=== PATIENT | female | born 1975 | race Caucasian/White ===

== ENCOUNTER 2017-11-20 09:06 | Observation (INO) | payer OTHER ==
[~2017-11-20 09:06] MED LIST: CEFAZOLIN 1 GM INJ; CEFAZOLIN 2 GM/50 ML (PMX) 50 ML IVPB; FENTAnyl 50 MCG/ML VIAL; GLYCOPYRROLATE 0.4 MG INJ; MIDAZOLAM 1 MG/ML 2 ML INJ; NEOSTIGMINE 3 MG/3 ML SYRINGE; ONDANSETRON 4 MG INJ; PROPOFOL 20 ML; ROCURONIUM 50 MG INJ; SOD CHLORIDE 0.9% 1,000 ML IV; SUCCINYLCHOLINE CHLORIDE 100 MG/5 ML SYG IV
[2017-11-20] MEDS ORDERED: DIPHENHYDRAMINE 50 MG INJ IV (16:00)
[2017-11-20] MEDS ORDERED: HYDROmorphONE (0.2 MG/ML) 10ML SYG IV ×3 (16:00)
[2017-11-20] MEDS ORDERED: MEPERIDINE 25 MG INJ IV (16:00)
[2017-11-20] MEDS ORDERED: LABETALOL HCL 20MG INJ IV (16:00)
[2017-11-20] MEDS ORDERED: OXYCODONE/ACETAMINOPHEN (5/325) TAB PO (16:00)
[2017-11-20] MEDS ORDERED: FENTAnyl 50 MCG/ML VIAL IV ×3 (16:00)
[2017-11-20] MEDS ORDERED: PROCHLORPERAZINE 10 MG INJ IV (16:00)
[2017-11-20] MEDS ORDERED: hydrALAzine 20 MG INJ IV (16:00)
[2017-11-20] MEDS: ISOSULFAN BLUE 1% 5 ML INJ SC (16:05)
[2017-11-20] MEDS ORDERED: MIDAZOLAM 1 MG/ML 2 ML INJ (16:21)
[2017-11-20] MEDS ORDERED: FENTAnyl 50 MCG/ML VIAL (16:21)
[2017-11-20] MEDS ORDERED: DEXAMETHASONE 4 MG/ML 1 ML INJ (16:21)
[2017-11-20] MEDS ORDERED: LIDOCAINE 2% (SDV) 5 ML INJ (16:21)
[2017-11-20] MEDS ORDERED: PROPOFOL 20 ML (16:21)
[2017-11-20] MEDS ORDERED: ONDANSETRON 4 MG INJ (16:21)
[2017-11-20] MEDS ORDERED: CEFAZOLIN 1 GM INJ (16:36)
[2017-11-20] MEDS ORDERED: HYDROmorphONE 2 MG/ML SYG (16:59)
[2017-11-20] MEDS ORDERED: ISOSULFAN BLUE 1% 5 ML INJ SC (17:19)
[2017-11-20] MEDS ORDERED: ONDANSETRON 4 MG INJ IV (17:30)
[2017-11-20] MEDS ORDERED: morphine 2 MG INJ IV (17:30)
[2017-11-20] MEDS ORDERED: ACETAMINOPHEN 1000MG/100ML IV 100 ML (18:05)
[2017-11-20] MEDS: ONDANSETRON 4 MG INJ IV (19:13)
[2017-11-20] MEDS: D5W-0.45 NACL + KCL 20 MEQ 1,000 ML IV (21:46)
[2017-11-21] MEDS: D5W-0.45 NACL + KCL 20 MEQ 1,000 ML IV ×2 (05:33→09:28)
[2017-11-21] MEDS: ACETAMINOPHEN 1000MG/100ML IV 100 ML IVPB (09:44)
== END 2017-11-21 16:50 | disposition home or self-care (01) ==
LOC: SDS 09:06 → REC 17:30 → MS2 20:25
DX: C50.412 Malignant neoplasm of upper-outer quadrant of left female breast (principal)
CPT/HCPCS: 19301; 88307; 88331; 99217